=== PATIENT | female | born 2000 | race Caucasian/White ===

== ENCOUNTER → 2019-07-06 17:18 | Observation (INO) ==
[2019-07-06 16:05] LABS: Amphetamine Screen,Urine Negative ng/mL (Cutoff=1000); Barbiturate Screen,Urine Negative ng/mL (Cutoff=200); Benzodiazepines Screen,Urine Negative ng/mL (Cutoff=200); Cannabinoid Screen,Urine Negative ng/mL (Cutoff = 50); Cocaine Screen,Urine Negative ng/mL (Cutoff= 300); Opiate Screen,Urine Negative ng/mL (Cutoff=300); Phencyclidine Screen,Urine Negative ng/mL (Cutoff=25)
--- NOTE | 2019-07-06 17:00 | Discharge Summary ---
Date of Encounter: 07/06/19 Time of Encounter: 17:01 - Discharge Diagnosis (1) 39 weeks gestation of Priority: Primary Status: Acute Comments: Admit to observation for complaint of vaginal bleeding after SVE (2) NST (non-stress test) reactive Priority: Secondary Status: Acute Comments: FHR 140 bpm, moderate variability, +15x15 accels, no decels. (3) False labor after 37 completed weeks of gestation Priority: Secondary Status: Acute Comments: Rare contractions and no cervical change in >2 hrs - Discharge Medications Prescriptions: No Action Pnv95/Ferrous Fumarate/FA [ Vitamin Tablet] 1 tab PO DAILY Albuterol Neb PRN PRN Reason: Shortness Of Breath raNITIdine HCl [Zantac] 150 mg PO BID Home Medications: Albuterol Neb PRN 07/06/19 [History] Pnv95/Ferrous Fumarate/FA [ Vitamin Tablet] 1 tab PO DAILY 07/06/19 [History] raNITIdine HCl [Zantac] 150 mg PO BID 07/06/19 [History] Allergies/Adverse Reactions: Allergy/AdvReac Type Severity Reaction Status Date / Time No Known Allergies Allergy Verified 07/06/19 14:50 Data Procedures and tests throughout hospitalization: Laboratory Tests 07/06/19 14:38 Urine Opiates Screen Negative Ur Buprenorphine Scrn Negative Ur Barbiturates Screen Negative Ur Phencyclidine Scrn Negative Ur Amphetamines Screen Negative U Benzodiazepines Scrn Negative Urine Cocaine Screen Negative U Marijuana (THC) Screen Negative Ur Drug Screen Interp See Below Labs on day of discharge: Labs from last 24 hours 07/06/19 14:38 Urine Opiates Screen Negative Ur Buprenorphine Scrn Negative Ur Barbiturates Screen Negative Ur Phencyclidine Scrn Negative Ur Amphetamines Screen Negative U Benzodiazepines Scrn Negative Urine Cocaine Screen Negative U Marijuana (THC) Screen Negative Ur Drug Screen Interp See Below Date of admission: 07/06/19 14:20 Primary care physician: Zee Guerra Discharging clinician: Sherron Garner Anticipated date of discharge: 07/06/19 - Patient Status Disposition: Home, Self-Care Condition: Good Functional capacity at discharge: independent ambulation Overall status at discharge: patient is progressing back to baseline - Discharge Instructions Follow Up With: Zee Guerra DO [Primary Care Provider] - Melonie Riley MD [Partnered Physician] - - Diet and Activity Activity: resume usual activities as tolerated Diet: regular diet Hospital Course [employer] Hospital course: Patient arrived with complaint of vaginal bleeding today after SVE in the office along with some pressure. She reports positive movement and denies fluid leakage. Reactive NST was obtained, SVE without change (1 cm) in >2 hrs. Suspect bloody show is from SVE today. Scant amount of blood on glove with exam. Patient given bleeding precautions. She is scheduled for IOL prior to [address] Riley. She is encouraged to return to L&D for any further complaints. Time Attestation: Total time spent providing and/or coordinating discharge services: Time Spent: Less than 30 minutes Exam - Constitutional General appearance IM: A&O X 3, pleasant, no acute distress, answers questions appropriately - Respiratory Respiratory exam: Present: CTAB. Absent: respiratory distress - Cardiovascular Cardiovascular exam IM: Present: RRR, +S1, +S2. Absent: irregular rhythm - GI/Abdominal GI/Abdominal exam IM: normal bowel sounds, soft - Rectal Rectal exam: deferred - External exam: normal external exam - Extremities Exam Extremities exam IM: Present: full ROM, normal capillary refill, normal inspection. Absent: calf tenderness - Neurological Exam Neurological exam: alert, normal gait, oriented X3 - VTE Reasons for not Prescribing Prophylaxis: Treatment not Indicated - Low risk for VTE
[~2019-07-06 17:18] MED LIST: FLU Vac QV 19-20 (6Month+)/PF 0.5 ML SYRINGE IM ONE
[2019-07-06 18:28] LABS: Candida DNA DETECTED (Not Detect); Gardnerella DNA Not Detected (Not Detect); Trichomonas DNA Not Detected (Not Detect)
== END | disposition home or self-care (01) ==
LOC: 1NENULAB
PROVIDERS: ADMIT Registered Nurse; ATTEND Registered Nurse

== ENCOUNTER 2019-07-12 04:36 | Inpatient (IN) ==
[~2019-07-12 04:36] MED LIST changes: -FLU Vac QV 19-20 (6Month+)/PF 0.5 ML SYRINGE IM ONE; +Famotidine 20 MG/2 ML VIAL IVP PRN; +Lidocaine 1% 20 ML MDV ID PRN; +Metoclopramide 10 MG/2 ML VIAL IVP PRN; +Naloxone 0.4 MG/ML INJ IVP PRN; +Ondansetron 4 MG/2 ML VIAL IVP PRN; +Oxytocin 20 units/ LR 1000 mL 20 UNIT/1,000 ML BAG IVC ONE; +Penicillin G Potassium 5,000,000 UNIT in 0.9 % Sodium Chloride Mini Bag 100 ML IVPB ONE
[2019-07-12] MEDS ORDERED: Ringers Solution, Lactated 1,000 ML IVC SCH (04:45)
--- NOTE | 2019-07-12 04:47 | OB/GYN History & Physical ---
Date of Encounter: 07/12/19 Time of Encounter: 04:45 Assessment and Plan (1) Spontaneous onset of labor Current visit: Yes Status: Acute Admit to labor and delivery Anticipate immediate vaginal delivery (2) 39 weeks gestation of Current visit: No Status: Acute History of Present Illness HPI: Ms. El is a 18 year old female 39+6 weeks gestation presents to triage with onset of labor. Patient started having contractions earlier this afternoon becoming stronger more frequent, SROM at 0 300. Patient arrived to triage [address] Riley complicated by chlamydia, test of cure completed, uncontrolled asthma. Referred to house decorator. Labs: O+, rubella varicella immune, GBS negative, all other serologies negative Past Med Surg Social Fam HX - Past Medical History Medical history: no medical history Psychiatric history: no psych history - Past Surgical History Surgical History: no surgical history - Social History Smoking Status: Never smoker Alcohol use: none Drug use: none - Family History Mother Hx Family Cancer: Yes Obstetrical History - Pregnancies : 1 Para: 0 Term: 0 : 0 Ab's: 0 Livin Medications and Allergies Albuterol Neb PRN 07/06/19 [History] Pnv95/Ferrous Fumarate/FA [ Vitamin Tablet] 1 tab PO DAILY 07/06/19 [History] Allergy/AdvReac Type Severity Reaction Status Date / Time No Known Allergies Allergy Verified 07/12/19 04:48 Exam - Constitutional Constitutional: well developed, well nourished, average body habitus - Neck Neck exam: full ROM - Lungs Respiratory exam: CTAB - Cardiovascular Cardiovascular exam: RRR - Abdomen Abdomen: Present: gravid, non tender - Extremities Extremities exam: normal capillary refill, normal inspection - Cervix Dilation: 9 Effacement: 100 Station: +1 Results Result Diagrams: 07/12/19 04:40 All other labs normal. - VTE Reasons for not Prescribing Prophylaxis: Treatment not Indicated - Low risk for VTE
[2019-07-12 04:49] LABS: Basophils % 0.1 %; Eosinophils # 0.1 K/mcL (0.0-0.6); Eosinophils % 0.4 %; Hemoglobin 11.1 g/dL (11.5-15.4); Immature Granulocytes % 0.9 % (0-4); Immature Platelets 5.1 % (1.1-6.1); Lymphocytes # 2.9 K/mcL (0.6-4.6); Lymphocytes % 21.5 %; Mean Corpuscular HGB Conc 32.6 g/dL (31.6-35.5); Mean Corpuscular Hemoglobin 27.6 pg (28.0-33.3); Mean Corpuscular Volume 84.6 fL (83.0-100.0); Mean Platelet Volume 10.6 fL (9.4-12.4); Monocytes # 1.3 K/mcL (0.0-1.3); Monocytes % 9.8 %; Neutrophils # 9.1 K/mcL (1.6-8.9); Platelet Count 238 K/mcL (140-400); Red Blood Count 4.02 M/mcL (3.82-4.97); Red Cell Distribution Width 13.9 % (11.5-14.5); Segmented Neutrophils % 67.3 %; White Blood Count 13.5 K/mcL (4.3-11.1)
--- NOTE | 2019-07-12 05:18 | OB/GYN Procedure Note ---
Delivery - Delivery Date: 07/12/19 Provider: Chari Mtz Intrapartum events: meconium, precipitous labor- <3hr Delivery induction: none Delivery monitor: external FHT, external uterine Anesthesia: local Quantitated Blood Loss: 300 - (s) Infant A Infant Delivery Date: 07/12/19 Infant Delivery Time: 04:46 Presentation: vertex Position: ELLIOT Route of delivery: Gender: Female Viability: Viable Pounds: 6 Ounces: 15 Weight Gram: 3.15 kg at 1 minute: 8 at 5 mins: 8 Shoulder Dystocia: not encountered Specimens collected: cord blood Placenta: spontaneous Cord: 3 umbilical vessels - Repair Episiotomy: none Laceration Description: Perineal - 2nd Degree - Complications Delivery comments: Called to room with patient complete and +2 station. Under maternal effort she delivered a viable female weighing 6 lbs. 15 oz. and Apgars 8 and 8 at one and 5 minutes respectively over second-degree perineal laceration. Following delivery of the head there was no nuchal cord. The shoulders and body of the were delivered with maternal effort. was placed on mom's abdomen and cord was allowed to cease pulsations. The cord was then double clamped and cut with assistance from the grandmother. Cord blood was collected. Placenta delivered spontaneously, complete, and intact with a three-vessel cord. Second-degree perineal laceration was repaired using 10 mL's of 1% lidocaine and 3-0 Vicryl in standard fashion. Hemostasis assured. There is a right labial laceration that was hemostatic without repair. Sponge and needle counts are correct at the end procedure, and mother and are recovering in the LDR in stable condition. - Disposition Mom disposition: stable in LDR [place] disposition: stable in LDR
[2019-07-12] MEDS ORDERED: Penicillin G Potassium 2,500,000 UNIT in 0.9 % Sodium Chloride 100 ML IVPB SCH (09:00)
[2019-07-12] MEDS ORDERED: Oxytocin 20 units/ LR 1000 mL 20 UNIT/1,000 ML BAG IVC SCH (09:13)
[2019-07-12] MEDS ORDERED: Lanolin 7 G OINT...G. TP PRN (09:13)
[2019-07-12] MEDS ORDERED: Acetaminophen 325 MG TABLET PO PRN (09:13)
[2019-07-12] MEDS ORDERED: Benzocaine/Menthol 56 GM AEROSOL SPRAY TP PRN (09:13)
[2019-07-12] MEDS ORDERED: Ibuprofen 600 MG TABLET PO PRN (09:13)
[2019-07-12] MEDS: Prenatal Vit/FA 1 EACH TABLET PO SCH (19:19)
[2019-07-13 05:35] LABS: Basophils % 0.2 %; Eosinophils % 0.4 %; Hematocrit 29.4 % (35.3-44.9); Immature Granulocytes % 0.9 % (0-4); Lymphocytes # 2.4 K/mcL (0.6-4.6); Lymphocytes % 21.2 %; Mean Corpuscular HGB Conc 32.3 g/dL (31.6-35.5); Mean Corpuscular Hemoglobin 27.6 pg (28.0-33.3); Mean Corpuscular Volume 85.5 fL (83.0-100.0); Monocytes # 1.3 K/mcL (0.0-1.3); Monocytes % 11.9 %; Neutrophils # 7.4 K/mcL (1.6-8.9); Platelet Count 207 K/mcL (140-400); Red Blood Count 3.44 M/mcL (3.82-4.97); Segmented Neutrophils % 65.4 %; White Blood Count 11.3 K/mcL (4.3-11.1)
[2019-07-13 05:44] LABS: Hemoglobin 9.5 g/dL (11.5-15.4)
[2019-07-13 08:34] VITALS: BP 100/68
[2019-07-13] MEDS: Prenatal Vit/FA 1 EACH TABLET PO SCH (09:18)
--- NOTE | 2019-07-13 11:21 | Discharge Summary ---
Date of Encounter: 07/13/19 Time of Encounter: 11:18 - Discharge Diagnosis (1) Vaginal delivery Priority: Primary Status: Acute Comments: Meeting day one milestones. Bleeding light, pain well controlled, no bowel movement yet. Tolerating regular diet, ambulating without difficulty, denies nausea. Anticipate discharge to guest status today. (2) Second degree perineal laceration Priority: Secondary Status: Acute Comments: Motrin, dermoplast, ice packs as needed for discomfort. (3) Breast feeding status of mother Priority: Secondary Status: Acute Comments: support as needed. Patient states she has a breast pump at home. (4) Acute blood loss anemia Priority: Secondary Status: Acute Comments: Continue iron supplementation daily - Discharge Medications Prescriptions: New Ferrous Sulfate 325 mg PO 0800 #30 tablet Albuterol Sulfate [Proventil Inhaler] 2 puff IH Q4H PRN inhaler PRN Reason: Bronchospasm Acetaminophen [Tylenol] 650 mg PO Q6HR PRN tablet PRN Reason: Mild Pain Ibuprofen [Motrin] 600 mg PO Q6HR PRN #60 tablet PRN Reason: Cramping Benzocaine/Menthol [employer] [Dermoplast [employer]] 1 appl TP QID PRN aerosol PRN Reason: See Comments Docusate [Colace] 100 mg PO BID capsule Lanolin [Lansinoh] 1 appl TP QID PRN oint...g. PRN Reason: Continued Pnv95/Ferrous Fumarate/FA [ Vitamin Tablet] 1 tab PO DAILY Discontinued Albuterol Neb PRN PRN Reason: Shortness Of Breath Home Medications: Pnv95/Ferrous Fumarate/FA [ Vitamin Tablet] 1 tab PO DAILY 07/06/19 [History] Acetaminophen [Tylenol] 650 mg PO Q6HR PRN tablet 07/13/19 [Rx] Albuterol Sulfate [Proventil Inhaler] 2 puff IH Q4H PRN inhaler 07/13/19 [Rx] Benzocaine/Menthol [employer] [Dermoplast [employer]] 1 appl TP QID PRN aerosol 07/13/19 [Rx] Docusate [Colace] 100 mg PO BID capsule 07/13/19 [Rx] Ferrous Sulfate 325 mg PO 0800 #30 tablet 07/13/19 [Rx] Ibuprofen [Motrin] 600 mg PO Q6HR PRN #60 tablet 07/13/19 [Rx] Lanolin [Lansinoh] 1 appl TP QID PRN oint...g. 07/13/19 [Rx] Allergies/Adverse Reactions: Allergy/AdvReac Type Severity Reaction Status Date / Time No Known Allergies Allergy Verified 07/12/19 04:48 Data Procedures and tests throughout hospitalization: Laboratory Tests 07/12/19 07/13/19 04:40 04:45 WBC 13.5 H 11.3 H RBC 4.02 3.44 L Hgb 11.1 L 9.5 L D Hct 34.0 L 29.4 L MCV 84.6 85.5 MCH 27.6 L 27.6 L MCHC 32.6 32.3 RDW 13.9 14.0 Plt Count 238 207 MPV 10.6 11.0 Immature Gran % 0.9 0.9 Seg Neutrophils % 67.3 65.4 Lymphocytes % 21.5 21.2 Monocytes % 9.8 11.9 Eosinophils % 0.4 0.4 Basophils % 0.1 0.2 Neutrophils # 9.1 H 7.4 Lymphocytes # 2.9 2.4 Monocytes # 1.3 1.3 Eosinophils # 0.1 0.0 Basophils # 0.0 0.0 Immature Plt Fraction 5.1 Labs on day of discharge: Labs from last 24 hours 07/13/19 04:45 WBC 11.3 H RBC 3.44 L Hgb 9.5 L D Hct 29.4 L MCV 85.5 MCH 27.6 L MCHC 32.3 RDW 14.0 Plt Count 207 MPV 11.0 Immature Gran % 0.9 Seg Neutrophils % 65.4 Lymphocytes % 21.2 Monocytes % 11.9 Eosinophils % 0.4 Basophils % 0.2 Neutrophils # 7.4 Lymphocytes # 2.4 Monocytes # 1.3 Eosinophils # 0.0 Basophils # 0.0 Date of admission: 07/12/19 04:36 Primary care physician: PCP NONE Consults: 07/12/19 09:13 Consult to [employer] [employer] [CONS] Routine Comment: Vaginal delivery, consult needed 07/13/19 07:19 Consult to Diet Aid (W&C) [CONS] Routine Reason For Exam: Reason for SW Consult: Possible transportation issues and concerns for initiating care with baby such as not wanting to change diaper Discharging clinician: Sherron Garner Anticipated date of discharge: 07/13/19 - Patient Status Disposition: Home, Self-Care Condition: Good Functional capacity at discharge: independent ambulation Overall status at discharge: patient is progressing back to baseline - Discharge Instructions Follow Up With: NONE,PCP [Primary Care Provider] - - Diet and Activity Activity: resume usual activities as tolerated Diet: regular diet Hospital Course Reason for admission: active labor Delivery: Episiotomy: none Laceration: 2nd degree, other (labial) Other procedures: none complications: none Discharge diagnosis: IUP at term delivered [place] baby: female Hospital course: Delivery Date: 07/12/19 Provider: Chari Mtz Intrapartum events: meconium, precipitous labor- <3hr Delivery induction: none Delivery monitor: external FHT, external uterine Anesthesia: local Quantitated Blood Loss: 300 - Infant (s) A Delivery Date: 07/12/19 Delivery Time: 04:46 Presentation: vertex Position: ELLIOT Route of delivery: Gender: Female Viability: Viable Pounds: 6 Ounces: 15 Weight Gram: 3.15 kg at 1 minute: 8 at 5 mins: 8 Shoulder Dystocia: not encountered Specimens collected: cord blood Placenta: spontaneous Cord: 3 umbilical vessels - Repair Episiotomy: none Laceration Description: Perineal - 2nd Degree - Complications Delivery comments: Called to room with patient complete and +2 station. Under maternal effort she delivered a viable female weighing 6 lbs. 15 oz. and Apgars 8 and 8 at one and 5 minutes respectively over second-degree perineal laceration. Following delivery of the head there was no nuchal cord. The shoulders and body of the infant were delivered with maternal effort. Infant was placed on mom's abdomen and cord was allowed to cease pulsations. The cord was then double clamped and cut with assistance from the grandmother. Cord blood was collected. Placenta delivered spontaneously, complete, and intact with a three-vessel cord. Second-degree perineal laceration was repaired using 10 mL's of 1% lidocaine and 3-0 Vicryl in standard fashion. Hemostasis assured. There is a right labial laceration that was hemostatic without repair. Sponge and needle counts are correct at the end procedure, and mother and are recovering in the LDR in stable condition. - Disposition Mom disposition: stable in LDR [place] disposition: stable in LDR Time Attestation: Total time spent providing and/or coordinating discharge services: Time Spent: Less than 30 minutes Exam - Constitutional Vitals: Temp Pulse Resp BP Pulse Ox 98.1 F 77 16 100/68 98 07/13/19 08:00 07/13/19 08:00 07/13/19 08:00 07/13/19 08:00 07/13/19 08:00 General appearance IM: A&O X 3, pleasant, no acute distress, answers questions appropriately - Respiratory Respiratory exam: Present: CTAB. Absent: respiratory distress - Cardiovascular Cardiovascular exam IM: Present: RRR, +S1, +S2. Absent: irregular rhythm - GI/Abdominal GI/Abdominal exam IM: normal bowel sounds - Rectal Rectal exam: deferred - External exam: normal external exam Uterine Tone: Firm Uterus Position: At Umbilicus, Midline - Extremities Exam Extremities exam IM: Present: full ROM, normal capillary refill, normal inspection. Absent: calf tenderness - Neurological Exam Neurological exam: alert, normal gait, oriented X3
[2019-07-13] MEDS ORDERED: Lidocaine/EPI 1:100k 1% 30 ML VIAL INFILT ONE (11:29)
[2019-07-13] MEDS ORDERED: Etonogestrel 68 MG IMPLANT IL ONE (11:29)
--- NOTE | 2019-07-13 16:27 | OB/GYN Procedure Note ---
[employer]: Procedure - Diagnosis Date of procedure: 07/13/19 Pre-op diagnosis: Desires contraception Post-op diagnosis: same - Procedure Procedure: Nexplanon insertion Surgeon: Sherron Garner Was there an staff assistant present: No Anesthesia provider: Sherron Garner Anesthesia Type: Local Procedure Complications: None Disposition: no change Narrative: Patient desires Nexplanon for control and would like to have it placed prior to discharge. Examination: Informed consent was obtained and time out performed. Patient was placed in supine position with left arm in the appropriate position. Betadine was used to prep the arm in sterile fashion. 1% Lidocaine was used for anesthesia. The Nexplanon was inserted in the subcutaneous tissue to the appropriate length then the Nexplanon was released. Both myself and the patient can palpate the betty without difficulty. Bandage and pressure dressing was applied. Patient tolerate the procedure well. Patient was instructed on wound care and is to follow up as needed. Patient educated on back up control for 7 days. Procedure: Correct patient, procedure, and site were verified and time out performed per policy. Therapeutic Injections: 3 mL of Lidocaine given at site of insertion by Satish Garner CNM
== END 2019-07-13 19:49 | disposition home or self-care (01) | DRG 560 ==
LOC: 1NENULAB → 1NENUOBS 07:59
PROVIDERS: ADMIT Advanced Practice Midwife; ATTEND Advanced Practice Midwife